=== PATIENT | female | born 1940 | race Caucasian/White ===

== ENCOUNTER 2024-03-26 08:52 | Emergency (ER) | payer MEDICARE, BC ==
[~2024-03-26] VITALS: Ht 160 cm; Wt 89.2 kg
[2024-03-26 09:37] LABS: STREP A SCREEN NEGATIVE (Neg)
[2024-03-26] MEDS ORDERED: CLIN-97 PO (10:51)
[2024-03-26 11:04] VITALS: BP 122/78; PULSE 70; RESP 18; TEMP 98.1; O2SAT 99
== END 2024-03-26 11:05 | disposition home or self-care (01) ==
LOC: ER 08:53
DX: J02.9 Acute pharyngitis, unspecified (principal); Z20.822 Contact with and (suspected) exposure to COVID-19; Z88.0 Allergy status to penicillin
CPT/HCPCS: 36415; 87081; 87811; 87880; 99283

== ENCOUNTER 2025-05-24 13:18 | Outpatient (CLI) | payer MEDICARE, BC ==
[~2025-05-24 13:18] MED LIST: CLIN-224 PO
--- NOTE | 2025-05-24 14:37 | RADIOLOGY REPORT ---
CLINICAL HISTORY: OTHER AMNESIA TECHNIQUE: Routine multiplanar imaging of the brain was performed without gadolinium contrast. COMPARISON: None FINDINGS: There is no abnormal restricted diffusion to suggest acute infarction. There is mild brain volume loss. [place] T2 hyperintense signal abnormality within the white matter both cerebral hemispheres is most compatible with a moderate to advanced burden of nonspecific chronic small vessel ischemic change. There is no evidence for acute ischemic changes, mass, mass effect, or extra- axial fluid collection. There is no hydrocephalus or midline shift. The cerebral sulci and subarachnoid cisterns are not effaced. The imaged paranasal sinuses are clear. There has been bilateral cataract extraction. The midline structures, including the corpus callosum, are unremarkable. The intracranial flow voids are maintained. IMPRESSION: No acute intracranial abnormality seen. No evidence for acute infarct. Mild brain volume loss. Moderate to advanced chronic small vessel ischemic change. Bilateral cataract extraction.
== END 2025-05-24 23:59 | disposition home or self-care (01) ==
LOC: MRI02 13:18
PROVIDERS: ATTEND Nurse Practitioner
DX: G93.89 Other specified disorders of brain (principal); R41.3 Other amnesia
CPT/HCPCS: 70551